=== PATIENT | female | born 1955 | race Caucasian/White ===

== ENCOUNTER 2019-09-13 07:05 | Outpatient (CLI) | payer OTHER, SELFPAY ==
--- NOTE | ~2019-09-13 | MM_ITS ---
EXAMINATION: MM screening carly BI w lou HISTORY: Screening mammogram TECHNIQUE: Craniocaudal and mediolateral oblique 3-D tomosynthesis images were obtained and synthetic 2-D images were generated. CAD analysis was submitted and interpreted. COMPARISON: 07/29/2017 BREAST PARENCHYMAL COMPOSITION: The breasts are almost entirely fatty. FINDINGS: There is no evidence of suspicious mass, calcification, or architectural distortion to sugg est malignancy in either breast. There has been no suspicious interval change. IMPRESSION: 1. No mammographic evidence of malignancy. 2. Recommend routine screening mammography in one year. BI-RADS Category 1: Negative Reviewed, dictated and finalized at location A.
[2019-09-13 07:39] LABS: Basophils Absolute Auto 0.1 K/mm3 (0.0-0.1); Basophils Percent Auto 0.9 % (0.2-1.2); Eosinophils Absolute Auto 0.1 K/mm3 (0-0.3); Hematocrit 43.1 % (37.0-47.0); Hemoglobin 14.5 g/dL (12.0-15.0); Immature Granulocyte Absolute 0.02 K/mm3 (0.00-0.031); Immature Granulocyte Percent A 0.3 % (0-0.5); Lymphocytes Absolute Auto 2.65 K/mm3 (0.9-3.2); Mean Corpuscular HGB Conc 33.6 g/dl (32-36); Mean Corpuscular Hemoglobin 30.7 pg (26-34); Mean Corpuscular Volume 91.1 fl (80-100); Mean Platelet Volume 9.8 fl (7.4-10.4); Monocytes Absolute Auto 0.7 K/mm3 (0.1-0.6); Monocytes Percent Auto 10.2 % (2.6-8.5); Neutrophils Absolute Auto 3.4 K/mm3 (1.3-6.7); Neutrophils Percent Auto 48.6 % (45.5-73.1); Platelet Count Result 340 k/mm3 (150-375); Red Blood Count 4.73 M/mm3 (4.2-5.4)
[2019-09-13 07:53] LABS: Alanine Aminotransferase 26 U/L (4-35); Albumin Level 4.1 g/dL (3.5-5.1); Alkaline Phosphatase 103 U/L (38-126); Aspartate Amino Transferase 27 U/L (14-36); Bilirubin,Total 0.9 mg/dL (0.2-1.3); Blood Urea Nitrogen 14 mg/dL (7-17); Calcium 8.7 mg/dL (8.4-10.2); Carbon Dioxide 27 mmol/L (22-30); Chloride 102 mmol/L (98-107); Cholesterol 235 mg/dL (0-200); Estimated Glomerular Filt Rate > 60; Glucose 103 mg/dL (65-105); HDL Direct 34 mg/dL; Potassium 3.8 mmol/L (3.4-5.0); Sodium 137 mmol/L (137-145); Triglycerides 277 mg/dL (<150)
[2019-09-13 08:04] LABS: LDL Cholesterol Direct 157 mg/dL
[2019-09-13 08:25] LABS: Vitamin D 25 Hydroxy 21.8 ng/mL
== END 2019-09-13 07:06 | disposition home or self-care (01) ==
PROVIDERS: PCP Family Medicine; Visit Provider Family Medicine
DX: Z12.31 Encounter for screening mammogram for malignant neoplasm of breast (principal); Z13.220 Encounter for screening for lipoid disorders
CPT/HCPCS: 36415; 77063; 77067; 80053; 80061; 82306; 84443; 85025

== ENCOUNTER 2020-04-30 14:30 | Outpatient (RCR) | payer OTHER, SELFPAY ==
--- NOTE | 2020-04-02 15:07 | PTOPEVAL ---
INITIAL PHYSICAL THERAPY EVALUATION and PLAN OF CARE Thank you for referring Chata Gregg to [facility].? The patient is scheduled to be seen for therapy? ____x/week for ___ weeks. Please review, sign, date and return this plan of care MORENITA. I agree with and certify that the following plan of care is medically necessary. Referring Physician Date Admitting Provider: Attending Provider: Maria Alejandra Jarrett, Referring Provider: *PT Outpatient Evaluation Start: 04/02/20 13:50 Freq: Status: Active Protocol: Document 04/02/20 13:45 TIEN (Rec: 04/02/20 15:06 TIEN [email or web address]) Therapy Assessment Status Assessment Status Assessment Status Evaluation Outpatient Past Medical History Past Medical History Source of Past Medical History Patient Neurological History Hx Neurological Disorders No Significant History Cardiovascular History Hx Hypercholesterolemia Yes Hx Hypertension Yes Respiratory History Hx Respiratory Disorders No Significant History Gastrointestinal History Hx Appendectomy Yes Hx Cholecystectomy Yes Genitourinary History Hx Genitourinary Disorders No Significant History Musculoskeletal History Hx Back Pain Yes Hx Other Musculoskeletal Disorders Yes: neck pain, foot pain, knee pain Endocrine History Hx Hypothyroidism Yes Evaluation Information Problem Diagnosis chronic back pain, dorsalgia Onset end of January 2020 Cause couple of falls - fell on R side out of bed - hit head as well Subjective Information initially some soreness on the Query Text:As Reported By Patient/ R side of neck and foot, but Family after a few weeks - then pain settled on the left side - buttock, thigh areas, increase discomfort with L LE wt bearing. Needs to take ibuprofen to help fall asleep - waking up more than usual - but able to go back to sleep. Stiffness in the morning - takes a couple of hours to loosen up. When does perform stairclimbing - single steps now - before wouldn't even try stairs. 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
--- NOTE | 2020-04-02 15:09 | PTOPEVAL ---
INITIAL PHYSICAL THERAPY EVALUATION and PLAN OF CARE Thank you for referring Chata Gregg to [facility] Chata is scheduled to be seen for physical therapy? 2x/week for 4 weeks. Please review, sign, date and return this plan of care MORENITA. I agree with and certify that the following plan of care is medically necessary. Referring Physician Date Admitting Provider: Attending Provider: Maria Alejandra Jarrett, Referring Provider: *PT Outpatient Evaluation Start: 04/02/20 13:50 Freq: Status: Active Protocol: Document 04/02/20 13:45 TIEN (Rec: 04/02/20 15:06 TIEN [email or web address]) Therapy Assessment Status Assessment Status Assessment Status Evaluation Outpatient Past Medical History Past Medical History Source of Past Medical History Patient Neurological History Hx Neurological Disorders No Significant History Cardiovascular History Hx Hypercholesterolemia Yes Hx Hypertension Yes Respiratory History Hx Respiratory Disorders No Significant History Gastrointestinal History Hx Appendectomy Yes Hx Cholecystectomy Yes Genitourinary History Hx Genitourinary Disorders No Significant History Musculoskeletal History Hx Back Pain Yes Hx Other Musculoskeletal Disorders Yes: neck pain, foot pain, knee pain Endocrine History Hx Hypothyroidism Yes Evaluation Information Problem Diagnosis chronic back pain, dorsalgia Onset end of January 2020 Cause couple of falls - fell on R side out of bed - hit head as well Subjective Information initially some soreness on the Query Text:As Reported By Patient/ R side of neck and foot, but Family after a few weeks - then pain settled on the left side - buttock, thigh areas, increase discomfort with L LE wt bearing. Needs to take ibuprofen to help fall asleep - waking up more than usual - but able to go back to sleep. Stiffness in the morning - takes a couple of hours to loosen up. When does perform stairclimbing - single steps now - before wouldn't even try stairs. 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
--- NOTE | 2020-04-30 15:45 | PTOPEVAL ---
PHYSICAL THERAPY DISCHARGE SUMMARY Thank you for referring Chata Gregg to [facility] Chata was seen x 9 visits. Objective goals were met but no change with subjective goals. She is at end point with PT - d/c to [facility]. I agree with Chata's discharge from PT. Referring Physician Date Admitting Provider: Attending Provider: Maria Alejandra Jarrett, Referring Provider: *PT Outpatient Evaluation Start: 04/02/20 13:50 Freq: Status: Active Protocol: Document 04/30/20 14:38 TIEN (Rec: 04/30/20 15:45 TIEN [email or web address]) Therapy Assessment Status Assessment Status Assessment Status Discharge Evaluation Information Problem Subjective Information Chata reports that she feels Query Text:As Reported By Patient/ like she is going backwards - Family discomfort is returning. Initially felt in L buttock and down back of L leg, now feeling also along the side of the L leg. The discomfort interferes with sleep. Since last visit - had catch in L shoulder that finally has loosened up. Pain Assessment Timing of Pain Assessment Timing of Pain Assessment Assessment Pain Scale Pain Scale Used Numeric (1 - 10) Self Report Pain Assessment Back Reported Pain Level 7 Pain Description Soreness,Tightness Other Pain Description it hurts Lowest Pain Intensity 4 Greatest Pain Intensity 8 Pain Aggravating Factors Exercise/Activity,Walking Pain Behaviors Limping Pain Score Pain Score 7: Self Report Interventions Used Interventions Used By Clinicians Electrical Stimulation, Exercise,Heat Cervical and Lumbar ROM Lumbar ROM Lumbar Flexion (0-90) 55 Query Text:Active in Degrees Lumbar Extension (0-40) 20 Query Text:Active in Degrees Lumbar Lateral Flexion Right (0-40) 10 Query Text:Active in Degrees Lumbar Lateral Flexion Left (0-40) 15 Query Text:Active in Degrees Lumbar Comments tightness felt with trunk motions Special Test-Spine Sacral Special Test Sacral Special Tests pelvis/SIJ symmetrical in standing, symmetrical motion at SIJ with trunk flexion and extension Rehab Teaching Rehab Teaching Teaching Topic Rehab Teaching Topic Components Home Program As Pertains To Technique Recipient
== END 2020-05-02 09:18 | disposition home or self-care (01) ==
LOC: ANHHIPT 14:30
PROVIDERS: PCP Family Medicine; Visit Provider Family Medicine
DX: M54.9 Dorsalgia, unspecified (principal)
CPT/HCPCS: 97014; 97110; 97140; 97162; G0283

== ENCOUNTER 2020-12-19 10:41 | Outpatient (CLI) | payer OTHER, SELFPAY ==
[2020-12-19 11:55] LABS: Basophils Absolute Auto 0.1 K/mm3 (0.0-0.1); Basophils Percent Auto 0.6 % (0.2-1.2); Eosinophils Absolute Auto 0.1 K/mm3 (0-0.3); Hematocrit 45.1 % (37.0-47.0); Hemoglobin 14.9 g/dL (12.0-15.0); Immature Granulocyte Absolute 0.03 K/mm3 (0.00-0.031); Immature Granulocyte Percent A 0.3 % (0-0.5); Lymphocytes Absolute Auto 2.32 K/mm3 (0.9-3.2); Lymphocytes Percent Auto 26.4 % (18.3-44.2); Mean Corpuscular Volume 93.8 fl (80-100); Mean Platelet Volume 10.4 fl (7.4-10.4); Monocytes Absolute Auto 0.9 K/mm3 (0.1-0.6); Monocytes Percent Auto 9.8 % (2.6-8.5); Neutrophils Absolute Auto 5.4 K/mm3 (1.3-6.7); Neutrophils Percent Auto 61.9 % (45.5-73.1); Platelet Count Result 379 k/mm3 (150-375); Red Blood Count 4.81 M/mm3 (4.2-5.4); White Blood Count 8.8 K/mm3 (4.5-10.0)
[2020-12-19 12:44] LABS: Vitamin D 25 Hydroxy 31.2 ng/mL
[2020-12-19 12:55] LABS: Iron 112 ug/dL (37-170)
[2020-12-19 13:10] LABS: Free T4 Free Thyroxine 1.27 ng/mL (0.78-2.19)
== END 2020-12-19 10:42 | disposition home or self-care (01) ==
LOC: ANHLAB 10:45
PROVIDERS: PCP Family Medicine; Visit Provider Family Medicine
DX: E03.9 Hypothyroidism, unspecified (principal); E55.9 Vitamin D deficiency, unspecified; Z86.2 Personal history of diseases of the blood and blood-forming organs and certain disorders involving the immune mechanism
CPT/HCPCS: 36415; 82306; 83540; 84439; 84443; 85025

== ENCOUNTER 2020-12-20 08:55 | Outpatient (CLI) | payer OTHER, SELFPAY ==
[2020-12-23 05:03] LABS: Thyroglobulin 20.2 ng/mL (2.8-40.9); Thyroglobulin Antibodies <1 IU/mL (<=1)
[2020-12-23 08:13] LABS: Triiodothyronine T3 Free 2.9 pg/mL (2.3-4.2)
== END 2020-12-20 08:56 | disposition home or self-care (01) ==
PROVIDERS: PCP Family Medicine; Visit Provider Family Medicine
DX: E03.9 Hypothyroidism, unspecified (principal)
CPT/HCPCS: 36415; 84432; 84481; 86800

== ENCOUNTER 2022-01-29 10:03 | Outpatient (CLI) | payer OTHER, SELFPAY ==
[2022-01-29 11:01] LABS: Alanine Aminotransferase 23 U/L (6-35); Albumin Level 4.3 g/dL (3.5-5.1); Alkaline Phosphatase 80 U/L (38-126); Anion Gap 8 mmol/L (8-16); Aspartate Amino Transferase 31 U/L (14-36); Bilirubin,Total 1.2 mg/dL (0.2-1.3); Blood Urea Nitrogen 13 mg/dL (7-17); Carbon Dioxide 29 mmol/L (22-30); Chloride 99 mmol/L (98-107); Cholesterol 264 mg/dL (0-200); Estimated Glomerular Filt Rate > 60; Glucose 102 mg/dL (65-110); HDL Direct 33 mg/dL; Potassium 3.8 mmol/L (3.4-5.0); Sodium 136 mmol/L (137-145); Triglycerides 301 mg/dL (<150)
[2022-01-29 11:12] LABS: LDL Cholesterol Direct 176 mg/dL
[2022-01-29 11:14] LABS: Free T4 Free Thyroxine 0.94 ng/mL (0.78-2.19); Vitamin D 25 Hydroxy 33.4 ng/mL
[2022-02-01 04:09] LABS: Thyroid Peroxidase Antibodies 8 IU/mL (<9)
== END 2022-01-29 10:04 | disposition home or self-care (01) ==
LOC: ANHLAB 10:05
PROVIDERS: PCP Family Medicine; Visit Provider Family Medicine
DX: Z00.00 Encounter for general adult medical examination without abnormal findings (principal); E03.9 Hypothyroidism, unspecified; E55.9 Vitamin D deficiency, unspecified
CPT/HCPCS: 36415; 80053; 80061; 82306; 84439; 84443; 86376

== ENCOUNTER 2022-04-09 13:45 | Outpatient (CLI) | payer OTHER, SELFPAY ==
--- NOTE | ~2022-04-09 | DEXA_ITS ---
Bone Density Report Name: NEERU SERRATO Age: 66 Sex: Female Ethnicity: White Date of : 1955 Indication: postmenopausal; screening for osteoporosis; height loss; Referring Provider: SUSAN, NAYT [place] Study: Bone densitometry was performed. Exam Date: April 09, 2022 Accession number: [id number] Bone Density: Region BMD T-score Z-score Classification AP Spine(L1-L4) 0.963 -0.8 1.0 Normal Femoral Neck (Left) 0.889 0.4 1.8 Normal Total Hip (Left) 1.199 2.1 3.3 Normal Femoral Neck (Right) 0.861 0.1 1.6 Normal Total Hip (Right) 1.174 1.9 3.1 Normal Total Hip Mean 1.186 2.0 3.2 Normal World Health Organization criteria for BMD impression classify patients as: Normal (T-score at or above -1.0), Osteopenia (T-score between -1.0 and -2.5), or Osteoporosis (T-score at or below -2.5). 10-year Fracture Risk: FRAX not reported because: All T-scores for Spine Total, Hip Total, Femoral Neck at or above -1.0 Previous Exams: Region Exam Age BMD T-score BMD Change BMD Change Date g/cm2 vs Baseline vs Previous AP Spine (L1-L4) 04/09/2022 66 0.963 -0.8 -0.103 (-9.7%) -0.103 (-9.7%) 07/29/2017 61 1.067 0.2 Total Hip(Left) 04/09/2022 66 1.199 2.1 -0.059 (-4.7%) -0.059 (-4.7%) 07/29/2017 61 1.258 2.6 Total Hip(Right) 04/09/2022 66 1.174 1.9 -0.050 (-4.1%) -0.050 (-4.1%) 07/29/2017 61 1.224 2.3 *Denotes significance at 95% confidence level, LSC for AP Spine = 0.022 g/cm2, LSC for Total Hip = 0.027 g/cm2 Clinical Information Provided by Patient: Patient maximum height was 64.5 Menopause Age: 45 No regular weight bearing exercise Drinks caffeinated beverages Onset of menses at age 15 Number of children 4 Impression: The patient has normal bone mass. The BMD for the AP Spine (L1-L4) decreased, changing by -9.7% since the last DXA exam. The BMD for the Total Hip(Left) decreased, changing by -4.7% since the last DXA exam. The BMD for the Total Hip(Right) decreased, changing by -4.1% since the last DXA exam. Discussion: BONE DENSITY IS ABOVE THE MINIMUM DESIRABLE LEVEL AT ALL SKELETAL SITES TESTED. This patient?s bone mineral density is above the minimum desirable level (T-score -1.0 or better) at all sites measured. The patient should follow a healthful lifestyle (good nutrition with adequate calcium and vitamin D, and appropriate weight-bearing exercise). Follow-Up: Consider repeating this study in 3
== END 2022-04-09 13:46 | disposition home or self-care (01) ==
PROVIDERS: PCP Family Medicine; Visit Provider Family Medicine
DX: Z91.89 Other specified personal risk factors, not elsewhere classified (principal); Z78.0 Asymptomatic menopausal state
CPT/HCPCS: 77080

== ENCOUNTER 2023-02-19 07:31 | Outpatient (CLI) | payer OTHER, SELFPAY ==
--- NOTE | ~2023-02-19 | MM_ITS ---
EXAMINATION: MM screening carly BI w lou HISTORY: Screening mammogram TECHNIQUE: Craniocaudal and mediolateral oblique 3-D tomosynthesis images were obtained and synthetic 2-D images were generated. CAD analysis was submitted and interpreted. COMPARISON: 09/13/2019, 07/29/2017 bilateral screening mammogram examinations BREAST PARENCHYMAL COMPOSITION: The breasts are almost entirely fatty. FINDINGS: There is no evidence of suspicious mass, calcification, or architectural distortion to sugg est malignancy in either breast. There has been no suspicious interval change. IMPRESSION: 1. No mammographic evidence of malignancy. 2. Recommend routine screening mammography in one year. BI-RADS Category 1: Negative Reviewed, dictated and finalized at location A.
[2023-02-19 08:20] LABS: Alanine Aminotransferase 24 U/L (6-35); Albumin Level 4.1 g/dL (3.5-5.1); Alkaline Phosphatase 92 U/L (38-126); Anion Gap 4 mmol/L (8-16); Aspartate Amino Transferase 28 U/L (14-36); Bilirubin,Total 1.2 mg/dL (0.2-1.3); Blood Urea Nitrogen 12 mg/dL (7-17); Calcium 8.9 mg/dL (8.4-10.2); Carbon Dioxide 31 mmol/L (22-30); Chloride 97 mmol/L (98-107); Cholesterol 255 mg/dL (0-200); Estimated Glomerular Filt Rate > 60; Glucose 105 mg/dL (65-110); HDL Direct 35 mg/dL; Potassium 3.8 mmol/L (3.4-5.0); Sodium 132 mmol/L (137-145); Triglycerides 239 mg/dL (<150)
[2023-02-19 08:31] LABS: LDL Cholesterol Direct 166 mg/dL
[2023-02-19 09:02] LABS: Free T4 Free Thyroxine 1.01 ng/mL (0.78-2.19)
[2023-02-19 19:29] LABS: Vitamin D 25 Hydroxy 26.2 ng/mL
== END 2023-02-19 07:32 | disposition home or self-care (01) ==
PROVIDERS: PCP Family Medicine; Visit Provider Family Medicine
DX: Z12.31 Encounter for screening mammogram for malignant neoplasm of breast (principal); Z13.220 Encounter for screening for lipoid disorders; E03.9 Hypothyroidism, unspecified; E55.9 Vitamin D deficiency, unspecified
CPT/HCPCS: 36415; 77063; 77067; 80053; 80061; 82306; 84439; 84443

== ENCOUNTER 2023-09-24 07:44 | Outpatient (CLI) | payer MEDICARE, MEDICAID, SELFPAY ==
[2023-09-24 08:59] LABS: Basophils Absolute Auto 0.1 K/mm3 (0.0-0.1); Basophils Percent Auto 0.8 % (0.2-1.2); Eosinophils Absolute Auto 0.1 K/mm3 (0-0.3); Eosinophils Percent Auto 1.8 % (0-4.4); Immature Granulocyte Absolute 0.02 K/mm3 (0.00-0.031); Immature Granulocyte Percent A 0.3 % (0-0.5); Lymphocytes Percent Auto 35.1 % (18.3-44.2); Mean Corpuscular HGB Conc 32.6 g/dl (32-36); Mean Corpuscular Hemoglobin 30.8 pg (26-34); Mean Corpuscular Volume 94.5 fl (80-100); Mean Platelet Volume 9.6 fl (7.4-10.4); Monocytes Absolute Auto 0.7 K/mm3 (0.1-0.6); Monocytes Percent Auto 9.6 % (2.6-8.5); Neutrophils Absolute Auto 3.9 K/mm3 (1.3-6.7); Neutrophils Percent Auto 52.4 % (45.5-73.1); Platelet Count Result 384 k/mm3 (150-375); Red Blood Count 4.87 M/mm3 (4.2-5.4); White Blood Count 7.4 K/mm3 (4.5-10.0)
[2023-09-24 09:23] LABS: Alanine Aminotransferase 21 U/L (6-35); Albumin Level 4.2 g/dL (3.5-5.1); Alkaline Phosphatase 96 U/L (38-126); Anion Gap 6 mmol/L (4-12); Aspartate Amino Transferase 27 U/L (14-36); Bilirubin,Total 1.3 mg/dL (0.2-1.3); Blood Urea Nitrogen 13 mg/dL (7-17); Calcium 9.4 mg/dL (8.4-10.2); Carbon Dioxide 29 mmol/L (22-30); Chloride 99 mmol/L (98-107); Cholesterol 246 mg/dL (0-200); Creatine Kinase 62 U/L (30-135); Estimated Glomerular Filt Rate > 60; Glucose 108 mg/dL (65-110); HDL Direct 33 mg/dL; Sodium 134 mmol/L (137-145); Triglycerides 327 mg/dL (<150)
[2023-09-24 09:34] LABS: LDL Cholesterol Direct 157 mg/dL
[2023-09-24 10:09] LABS: Vitamin D 25 Hydroxy 37.5 ng/mL
[2023-09-24 10:26] LABS: Folic Acid 15.3 ng/mL (2.76->20)
[2023-09-29 14:11] LABS: Triiodothyronine T3 Free 3.1 pg/mL (2.3-4.2)
== END 2023-09-24 07:45 | disposition home or self-care (01) ==
PROVIDERS: PCP Family Medicine; Visit Provider Physician Assistant
DX: E03.9 Hypothyroidism, unspecified (principal); R53.83 Other fatigue; E78.5 Hyperlipidemia, unspecified; E55.9 Vitamin D deficiency, unspecified
CPT/HCPCS: 36415; 80053; 80061; 82306; 82550; 82607; 82746; 84439; 84443; 84481; 85025